=== PATIENT | female | born 1970 | race Asian ===

== ENCOUNTER 2021-02-11 16:31 | Emergency (ER) | payer BC, SELFPAY ==
--- NOTE | ~2021-02-11 | US_ITS ---
US pelvic complete w TV DATE: 02/11/2021 20:15 INDICATION: Pelvic pain. Rule out ovarian torsion TECHNIQUE: Real-time imaging via transabdominal and transvaginal approaches COMPARISON: None FINDINGS: The uterus measures 12 cm height, 6.5 cm anteroposterior and 9.3 cm transverse dimension. T here is uterine sonographic heterogeneity with suggestion of fibroid change including one laterally m easuring up to 5 x 6.6 cm dimension. The right left ovary is not visualized. The left ovary measures 4.3 x 3.9 x 5.9 cm and contains a cyst measuring 3 x 4.4 cm, with internal de bris. There is vascular flow to the left ovary on Doppler analysis and color flow imaging and There is mild fluid in the cul-de-sac. IMPRESSION: Enlarged fibroid uterus 3 x 4.4 cm left complicated ovarian cyst No evidence of left ovarian torsion The right ovary is not visualized. Reviewed, dictated and finalized at [facility] Reviewed, dictated and finalized at [facility].
[2021-02-11 16:35] VITALS: BP 117/66; PULSE 67; RESP 18; TEMP 36.6; O2SAT 100
[2021-02-11 16:57] LABS: Basophils Percent Auto 0.3 % (0.2-1.2); Eosinophils Percent Auto 0.5 % (0-4.4); Hematocrit 33.5 % (37.0-47.0); Hemoglobin 10.4 g/dL (12.0-15.0); Immature Granulocyte Absolute 0.02 K/mm3 (0.00-0.031); Immature Granulocyte Percent A 0.3 % (0-0.5); Lymphocytes Absolute Auto 1.13 K/mm3 (0.9-3.2); Lymphocytes Percent Auto 18.6 % (18.3-44.2); Mean Corpuscular Hemoglobin 23.8 pg (26-34); Mean Corpuscular Volume 76.7 fl (80-100); Mean Platelet Volume 9.4 fl (7.4-10.4); Monocytes Absolute Auto 0.2 K/mm3 (0.1-0.6); Monocytes Percent Auto 3.5 % (2.6-8.5); Neutrophils Absolute Auto 4.7 K/mm3 (1.3-6.7); Neutrophils Percent Auto 76.8 % (45.5-73.1); Platelet Count Result 241 k/mm3 (150-375); Red Blood Count 4.37 M/mm3 (4.2-5.4); White Blood Count 6.1 K/mm3 (4.5-10.0)
[2021-02-11 17:08] LABS: Alanine Aminotransferase 13 U/L (4-35); Albumin Level 4.3 g/dL (3.5-5.1); Alkaline Phosphatase 70 U/L (38-126); Anion Gap 11 mmol/L (8-16); Aspartate Amino Transferase 22 U/L (14-36); Bilirubin,Total 0.8 mg/dL (0.2-1.3); Blood Urea Nitrogen 14 mg/dL (7-17); Calcium 8.9 mg/dL (8.4-10.2); Carbon Dioxide 20 mmol/L (22-30); Chloride 103 mmol/L (98-107); Estimated CRCL calculation 90 ml/min; Estimated Glomerular Filt Rate > 60; Glucose 133 mg/dL (65-110); Lipase 66 U/L (23-300); Potassium 2.9 mmol/L (3.4-5.0); Sodium 134 mmol/L (137-145)
[2021-02-11 18:17] LABS: Add Urine Microscopic? YES; Appearance Urine Clear (Clear); Bilirubin Urine Negative (Negative); Blood Urine 3+ (Negative); Color Urine Yellow (Yellow); Glucose Urine UA Negative (Negative); Ketones Urine 2+ mg/dL (Negative); Leukocyte Esterase Ur Negative LEU/UL (Negative); Mucus Urine Heavy /lpf; Nitrate Urine Negative (Negative); Protein Urine 2+ mg/dL (Negative); RBC Urine >75 /hpf (0-2); Specific Grav Ur 1.021 (1.001-1.035); Squamous Epithelial Cell Urine Rare /hpf (Few); Urobilinogen Urine Negative mg/dL (<2.0); WBC Urine 0-3 /hpf
[2021-02-11 18:37] VITALS: BP 109/44; PULSE 70
[2021-02-11 18:39] VITALS: BP 128/68; PULSE 80
[2021-02-11 18:40] VITALS: BP 99/72; PULSE 81
--- NOTE | 2021-02-11 18:56 | ED.ABDPAIN ---
HPI - Abdominal Pain General Chief Complaint: Abdominal Pain Stated Complaint: vaginal bleeding, abd pain Time Seen by Provider: 02/11/21 18:12 Source: patient Mode of arrival: ambulatory Limitations: language barrier (patient's relative is interpreting) History of Present Illness HPI narrative: This is a 50 year old female that presents to the ER for LLQ pain present over the last couple of days. Reports the pain has now radiated to the RLQ as well. It is sharp in nature and intermittent. Currently is on her menstrual cycle and it is much heavier than normal. Denies fever, nausea, vomiting, dysuria or hematuria. Review of Systems Review of Systems: CONSTITUTIONAL: Denies fever GASTROINTESTINAL: Reports abdominal pain. Denies nausea, vomiting, or diarrhea. GENITOURINARY: Denies dysuria or hematuria. All systems reviewed & are unremarkable except as noted in HPI and below PMFSH Past Medical History Medical History (Updated 02/11/21 @ 21:13 by Marya Guerrero PA-C) No active medical problems Social History Social History (Updated 02/11/21 @ 19:32 by Marya Guerrero PA-C) Smoking status: Never smoker Exam Narrative: GENERAL: Well-appearing, well-nourished, and in no acute distress. HEAD: Normocephalic, atraumatic. EYES: EOMI. CHEST: Clear to auscultation. No respiratory distress. No wheezes rales or rhonchi HEART: Regular rate and rhythm. No murmur heard. Normal peripheral pulses. ABDOMEN: Soft, nondistended, normal active bowel sounds. Tender to palpation in the LLQ, without guarding. No CVA tenderness EXTREMITIES: Normal range of motion. No edema. SKIN: Warm, dry, no rash. NEURO: No focal deficits. Alert and oriented x3. PSYCH: Normal mood and affect Course Consultations Consultation #1: Spoke with Dr. Castaneda about patient and work-up who will follow up in clinic. Date: 02/11/21 Time: 21:00 Vital Signs Vital signs: Vital Signs Temperature 97.8 F 02/11/21 16:35 Pulse Rate 67 02/11/21 16:35 Respiratory Rate 18 02/11/21 16:35 Blood Pressure 117/66 02/11/21 16:35 Pulse Oximetry 100 02/11/21 16:35 Temperature 97.8 F 02/11/21 16:35 Pulse Rate 78 02/11/21 19:47 Respiratory Rate 18 02/11/21 19:47 Blood Pressure 105/65 02/11/21 19:47 Pulse Oximetry 100 02/11/21 19:47 MDM - Abdominal Pain MDM Narrative Medical decision making narrative: Patient presents to the ER for left sided pelvic pain present over the last couple of days. She is afebrile and nontoxic appearing. Mildly orthostatic on arrival. Patient hydrated in the ED with IV fluids improvement. CBC is without leukocytosis. Does show microcytic anemia with hemoglobin of 10.4. Patient does report known history of anemia. Metabolic panel significant for hypokalemia with potassium of 2.9. Patient given dose of potassium in the ED. Lipase is normal. UA without evidence of infection. Does show red blood cells, likely due to patient's current menstrual cycle. Pelvic ultrasound shows an enlarged fibroid uterus. Also shows a 3 x 4.4 cm left complicated ovarian cyst. No evidence of ovarian torsion. The right ovary is not visualized. There is a small amount of fluid in the pelvis. Patient was updated on case findings. She reports relief in pain. Spoke with Dr. Castaneda about patient and work-up who will follow up in clinic. Patient is stable and felt appropriate for further outpatient evaluation. She was given warnings to return the ER Lab Data Attestation: I reviewed the patient's lab results. Result diagrams: 02/11/21 16:43 02/11/21 16:43 Labs: Lab Results 02/11/21 02/11/21 02/11/21 Range/Units 16:43 16:43 17:33 WBC 6.1 (4.5-10.0) K/mm3 RBC 4.37 (4.2-5.4) M/mm3 Hgb 10.4 L (12.0-15.0) g/dL Hct 33.5 L (37.0-47.0) % MCV 76.7 L (80-100) fl MCH 23.8 L (26-34) pg MCHC 31.0 L (32-36) g/dl RDW 18.0 H (11.5-14.5) % Plt Count 241 (150-375) k/mm3 MPV 9.4
[2021-02-11] MEDS: ONDANSETRON INJ 4 MG/2 ML VIAL IV PUSH (19:46)
[2021-02-11] MEDS: SODIUM CHLORIDE 0.9% IV 1,000 ML 999 ML IV CONT (19:46)
[2021-02-11] MEDS: MORPHINE SULFATE (*CRX) 2 MG/ML INJ IV PUSH (19:46)
[2021-02-11 19:47] VITALS: BP 105/65; PULSE 78; RESP 18; O2SAT 100
[2021-02-11] MEDS: POTASSIUM CHLORIDE 20 MEQ TABLET 40 MEQ PO (21:16)
[2021-02-11 21:41] VITALS: BP 107/63; PULSE 71; RESP 18; O2SAT 99
== END 2021-02-11 21:43 | disposition home or self-care (01) ==
PROVIDERS: Emergency Provider Emergency Medicine
DX: N83.202 Unspecified ovarian cyst, left side (principal); D25.9 Leiomyoma of uterus, unspecified; E87.6 Hypokalemia
CPT/HCPCS: 36415; 76830; 76856; 80053; 81001; 81025; 83690; 85025; 96365; 96375; 99284; A9270; J0131; J2270; J2405; J7030

== ENCOUNTER 2022-02-04 15:14 | Emergency (ER) | payer BC, SELFPAY ==
[2022-02-04 15:18] VITALS: BP 135/57; PULSE 67; RESP 16; TEMP 36.6; O2SAT 100
[2022-02-04 15:51] LABS: Basophils Percent Auto 0.4 % (0.2-1.2); Eosinophils Absolute Auto 0.1 K/mm3 (0-0.3); Eosinophils Percent Auto 0.6 % (0-4.4); Hematocrit 34.3 % (37.0-47.0); Hemoglobin 10.9 g/dL (12.0-15.0); Immature Granulocyte Absolute 0.03 K/mm3 (0.00-0.031); Immature Granulocyte Percent A 0.3 % (0-0.5); Lymphocytes Absolute Auto 0.76 K/mm3 (0.9-3.2); Lymphocytes Percent Auto 8.5 % (18.3-44.2); Mean Corpuscular HGB Conc 31.8 g/dl (32-36); Mean Corpuscular Hemoglobin 27.8 pg (26-34); Mean Corpuscular Volume 87.5 fl (80-100); Mean Platelet Volume 9.8 fl (7.4-10.4); Monocytes Absolute Auto 0.3 K/mm3 (0.1-0.6); Monocytes Percent Auto 3.3 % (2.6-8.5); Neutrophils Absolute Auto 7.8 K/mm3 (1.3-6.7); Neutrophils Percent Auto 86.9 % (45.5-73.1); Platelet Count Result 247 k/mm3 (150-375); Red Blood Count 3.92 M/mm3 (4.2-5.4); Red Cell Distribution Width 18.2 % (11.5-14.5)
[2022-02-04 15:52] LABS: Add Urine Microscopic? YES; Appearance Urine Cloudy (Clear); Bilirubin Urine 1+ (Negative); Blood Urine 3+ (Negative); Color Urine Red (Yellow); Glucose Urine UA Negative (Negative); Ketones Urine 2+ mg/dL (Negative); Leukocyte Esterase Ur Negative LEU/UL (Negative); Nitrate Urine Negative (Negative); Protein Urine 2+ mg/dL (Negative); Specific Grav Ur 1.025 (1.001-1.035); pH Urine 6.5 (5.0-9.0)
[2022-02-04 15:55] LABS: Alanine Aminotransferase 10 U/L (6-35); Albumin Level 4.2 g/dL (3.5-5.1); Alkaline Phosphatase 74 U/L (38-126); Anion Gap 6 mmol/L (8-16); Aspartate Amino Transferase 24 U/L (14-36); Bilirubin,Total 0.5 mg/dL (0.2-1.3); Blood Urea Nitrogen 17 mg/dL (7-17); Calcium 8.5 mg/dL (8.4-10.2); Carbon Dioxide 23 mmol/L (22-30); Chloride 108 mmol/L (98-107); Estimated CRCL calculation 66 ml/min; Estimated Glomerular Filt Rate > 60; Glucose 110 mg/dL (65-110); Lipase 79 U/L (23-300); Potassium 3.5 mmol/L (3.4-5.0); Sodium 137 mmol/L (137-145)
[2022-02-04 16:02] LABS: Mucus Urine Heavy /lpf; RBC Urine >75 /hpf (0-2); Squamous Epithelial Cell Urine Rare /hpf (Few)
--- NOTE | 2022-02-04 17:12 | ED.ABDPAIN ---
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 She is on day 3 of her current. And symptoms have slightly improved though still seems unbearable and she has trouble sleeping due to the pain. No heavy bleeding at this time. Related Data Allergies Allergy/AdvReac Type Severity Reaction Status Date / Time Penicillins Allergy Unresponsiv Verified 02/04/22 17:22 e Review of Systems Review of Systems: CONST: No fever. HEENT: No sore throat C/V: No chest pain RESP: No cough GI: Reports abdominal pain : Vaginal bleeding M/S: No joint pain. SKIN: No rash. NEURO: [No headache or focal numbness or weakness] PSYCH: [No depression] [facility] Past Medical History Medical History No active medical problems Social History Social History Smoking status: Never smoker Exam Narrative: EXAMINATION OF ORGAN SYSTEMS/BODY AREAS: Constitutional: Vital signs per nursing GENERAL:[No acute distress, non-toxic appearing, but somewhat uncomfortable holding her left lower side.] HEAD: Normal with no signs of head trauma. EYES: EOMI, conjunctiva normal ENT: Hearing grossly intact LUNGS: Nonlabored breathing. HEART: [Regular rate and rhythm] ABD: [Soft], [tender to palpation left pelvis] EXT: Normal range of motion SKIN: [No rashes or lesions.] NEURO: [Alert and oriented x 3. No gross focal sensory or strength deficits.] Ambulates with steady gait PSYCH: Normal affect Course Vital Signs Vital signs: Vital Signs Temperature 98 F 02/04/22 15:18 Pulse Rate 67 02/04/22 15:18 Respiratory Rate 16 02/04/22 15:18 Blood Pressure 135/57 L 02/04/22 15:18 Pulse Oximetry 100 02/04/22 15:18 Oxygen Delivery Room Air 02/04/22 15:18 Temperature 98.3 F 02/04/22 17:47 Pulse Rate 68 02/04/22 17:47 Respiratory Rate 16 02/04/22 17:47 Blood Pressure 124/80 02/04/22 17:47 Pulse Oximetry 100 02/04/22 17:47 Oxygen Delivery Room Air 02/04/22 15:18 MDM - Abdominal Pain MDM Narrative Medical decision making narrative: Electronic medical record was reviewed. Patient presented to the ED with complaint of severe pelvic pain from her period. Vitals [were within acceptable limits]. Physical exam revealed soft abdomen with some [tenderness to palpation in left lower abdomen]. Based on the patient's history and physical exam, my differential includes but is not limited to period cramps, ruptured cyst, endometriosis. CBC, BMP, lipase, LFTs, bilirubin and alk phos were obtained. Labs were pertinent for negative Hcg, Hgb at baseline. I called her nurse school Dr. Castaneda to discuss this with him, as patient is overall nontoxic-appearing and tolerating p.o., I do not feel she requires admission for pain control at this time, but I do feel she could benefit from earlier follow-up with her doctor, he is agreeable to seeing her in the clinic tomorrow morning, he is advising pain control until then, she is given a Smock here and Toradol, with improvement of her symptoms, she is agreeable to following up in the morning with her doctor instead of staying in the hospital. The patient was given strict return precautions, if they are to develop any worsening abdominal pain they are to return to the emergency department immediately. Patient verbally acknowledges understanding these directions. They will be discharged home [with prescriptions]. The patient feels that this is appropriate medical decision making and verbalizes an understanding o
[2022-02-04] MEDS: KETOROLAC 30 MG/ML VIAL (*BKC) 15 MG IM (17:23)
[2022-02-04] MEDS: HYDROcodone/acetaminophen (*CRX) 5-325 MG TABLET 1 TAB PO (17:23)
[2022-02-04] MEDS: Please add drug allergy info to patient profile. 1 EACH XX (17:23)
[2022-02-04 17:47] VITALS: BP 124/80; PULSE 68; RESP 16; TEMP 36.8; O2SAT 100
== END 2022-02-04 17:48 | disposition home or self-care (01) ==
LOC: ANHED 17:29
PROVIDERS: Emergency Provider Emergency Medicine
DX: R10.2 Pelvic and perineal pain (principal)
CPT/HCPCS: 36415; 80053; 81001; 81025; 83690; 85025; 87086; 96372; 99283; A9270; J1885

== ENCOUNTER 2022-02-10 01:12 | Day surgery (SDC) | payer BC, SELFPAY ==
--- NOTE | 2022-02-08 13:56 | PC.NURSE ---
Report to the Outpatient Waiting Room, entrance under the green pavilion located off [facility], at time _1030_ on date _02/10/22_. OR Time: _1230_. - You and your visitor will be asked to self-screen and do not enter if you have any COVID symptoms. - Only one visitor and NO children visitors are allowed at this time. - The patient visitor is requested to leave or wait in car when not with patient due to restrictions. - A mask is required within the hospital. Patients may have clear liquids (water, carbonated beverages, clear teas, apple juice) until 3 hours prior to surgery (0930 AM) with a maximum of 20 ounces. - No food from midnight until time of surgery Take the following medications with a SIP of water the morning of surgery: _HYDROCODONE PAIN PILL IF NEEDED_ Medications to discontinue IBUPROFEN PER DR. WALDEN ,Date to take last dose Please no make-up, nail palestinian, hairspray, perfume, deodorant, or body powder the day of surgery. No jewelry (including any body piercings) or valuables the day of surgery, leave them at home. Please take a shower or bath the night before, or the morning of, surgery with an antibacterial soap. Wear comfortable, loose fitting clothing. - Jewelry must be removed prior to entering the operating room. Rings and piercings that are not removed may be cut off. - The hospital will not accept responsibility for valuables. - Please leave all valuables, including medications, at home the day of surgery. If you are going home after surgery, a licensed fuel oil truck driver must drive you home. - NO public transportation without another adult. - We recommend that an adult stay with you for 24 hours following discharge. - We also recommend that you do not drive, make important decision, drink alcoholic beverages, or take any drugs that were not prescribed by your health care provider for at least 24 hours after your discharge time. Follow any additional instructions given to you from your surgeon. If you or anyone in your household have experienced Covid symptoms in the past week, please notify your surgeon or the nurse liaison at the phone number below for possible testing. Instructions given to _PT _and asked if any additional questions and then verbalized understanding. Patient advised to call surgeon office or pre surgery nurse liaison [phone] if any additional questions.
[2022-02-08 14:47] VITALS: BP 126/80; PULSE 60; RESP 18; TEMP 36.9; O2SAT 100; BMI 21.2
--- NOTE | 2022-02-09 13:25 | P.PNAN_ITS ---
Anes - Initial Pre Proc Eval Procedure: Operation Date: 02/10/22 12:30 Proposed Procedures p Laparoscopic Bilateral Salpingectomy, Left Ovarian Cystectomy - Enrrique Castaneda MD Date/Time: 02/09/22 13:25 Surgeon: Enrrique Castaneda MD Pre Op Diagnosis: hemorrhagic cyst of ovary Patient Data Age: 51 Gender: F Height: 1.6 m Weight: 54.3 kg Last Vital Signs Temp 36.9 C 02/08/22 14:47 Pulse 60 02/08/22 14:47 Resp 18 02/08/22 14:47 BP 126/80 02/08/22 14:47 Pulse Ox 100 02/08/22 14:47 O2 Del Method Room Air 02/08/22 14:47 Allergies Allergy/AdvReac Type Severity Reaction Status Date / Time Penicillins Allergy Unresponsive- Verified 02/08/22 14:27 A CHILD Home Medications Medication Instructions Recorded Confirmed Type hydrocodone 5 mg-acetaminophen 325 1 tablet PO Q6H PRN pain #10 tabs 02/04/22 02/08/22 Rx mg tablet ibuprofen 1 cap PRN PRN Pain 02/08/22 02/08/22 History Patient hx anesthesia problems: none Family hx anesthesia problems: none Results Review: All pre-operative results and documents have been reviewed as part of the pre- operative evaluation. [facility] Past Medical History Medical History (Updated 02/09/22 @ 13:26 by Homer Hernández MD) Back pain No active medical problems Social History Social History Smoking status: Never smoker Second hand tobacco smoke exposure: No Alcohol intake: never Substance use: never Substance use type: does not use Living arrangements: alone Spiritual care concerns: No Anes - Eval Final PreProcedure Day of Procedure 02/09/22 13:25 Patient weight: overweight Heart: regular rate and rhythm Lungs: clear to auscultation and normal air movement Airway: Mallampati scale class II Neurological: alert and oriented Last oral intake: >/= 8 hours ASA classification: II Emergent: no Anesthetic plan: proceed Anesthesia type and monitoring: general ETT Results Review: All pre-operative results and documents have been reviewed as part of the pre- operative evaluation. Informed Consent: The patient's anesthetic plan and its attendant risks and benefits were discussed with the patient/family/POA. Questions were solicited and answers provided to the satisfaction of the patient/family/POA.
[2022-02-10] VITALS (9 sets, daily range): BP systolic 115–155; BP diastolic 62–84; PULSE 46–70; RESP 12–20; TEMP 36.4–36.6; O2SAT 99–100
[2022-02-10] MEDS: ACETAMINOPHEN 500 MG TABLET 1000 MG PO (10:16)
[2022-02-10] MEDS: KETOROLAC 15 MG/ML VIAL (*BKC) IV PUSH (10:50)
[2022-02-10] MEDS: LACTATED RINGERS 1,000 ML 30 ML IV CONT ×2 (10:50→14:30)
--- NOTE | 2022-02-10 11:38 | SUR.PREOP ---
Warm blanket given to patient. No other needs or complaints.
--- NOTE | 2022-02-10 12:44 | WPDHPUPDATE1 ---
History and Physical Update Update Date/Time: 02/10/22 12:44 History and Physical has been reviewed, including an updated exam of the patient. There are NO changes in the patient's condition. Risks, benefits, and alternatives have been discussed and questions answered. Patient agrees to proceed with procedure.
--- NOTE | 2022-02-10 12:56 | PM.IMHP ---
H&P: HPI History of Present Illness Date/Time: 02/10/22 12:56 Chief Complaint: Pelvic pain Narrative: This patient is a 51-year-old female with severe pelvic pain and a longstanding hemorrhagic left ovarian cyst. We have agreed to perform laparoscopic left ovarian cystectomy bilateral salpingectomy. She understands that injuries may occur during the surgery. She understands that injuries can result in hospitalization, more surgery, and severe illness. She understands there is risk of hemorrhage and infection and laparotomy. Review of Systems Review of Systems: All systems reviewed & are unremarkable except as noted in HPI and below Constitutional: Constitutional: Denies chills, Denies fatigue, Denies fever(s) and Denies weakness Eyes: Eyes: Denies blurry vision, Denies change in vision, Denies loss of peripheral vision, Denies loss of vision, Denies other visual disturbances and Denies eye pain ENT: Denies vertigo, Denies dizziness, Denies hearing loss, Denies mouth pain, Denies nasal obstruction, Denies neck mass and Denies neck pain Cardiovascular: Cardiovascular: Denies chest pain, Denies diaphoresis, Denies syncope, Denies leg edema and Denies dyspnea Respiratory: Respiratory: Denies chest congestion, Denies cough, Denies hemoptysis, Denies dyspnea and Denies wheezing Gastrointestinal: Gastrointestinal: Denies abdominal pain, Denies constipation, Denies diarrhea, Denies nausea and Denies vomiting Genitourinary: Genitourinary: Denies hematuria, Denies change in libido, Denies nocturia, Denies genital lesions, Denies flank pain and Denies urinary urgency Musculoskeletal: Musculoskeletal: Denies abnormal gait, Denies back pain, Denies myalgias, Denies arthralgias, Denies joint swelling, Denies muscle weakness and Denies neck pain Integumentary/Breasts: Skin/Breast: Denies swelling, Denies breast pain, Denies breast mass, Denies dry skin, Denies nipple discharge, Denies unusual bruising and Denies jaundice Neurologic: Denies Neuro-related abnormal movements, Denies Abnormal speech present, Denies abnormal gait, Denies behavioral changes, Denies confusion, Denies vertigo, Denies dizziness, Denies syncope, Denies loss of vision, Denies memory loss, Denies convulsions and Denies weakness Psychiatric: Psychiatric: Denies abnormal sleep pattern, Denies behavioral changes, Denies change in libido, Denies confusion, Denies depression, Denies anhedonia and Denies memory loss Endocrine: Endocrine: Reports no additional endocrine complaints, Denies change in libido and Denies fatigue Hematologic/Lymphatic: Hematologic/Lymphatic: Reports no additional hematologic/lymphatic complaints Allergic/Immunologic: Allergic/Immunologic: Reports no additional allergic/immunologic complaints and Denies wheezing PMFSH Past Medical History Medical History (Updated 02/10/22 @ 12:57 by Enrrique Castaneda MD) Back pain No active medical problems Social History Social History Smoking status: Never smoker Second hand tobacco smoke exposure: No Alcohol intake: never Substance use: never Substance use type: does not use Living arrangements: alone Spiritual care concerns: No Meds Home Medications and Allergies Home Medications Medication Instructions Recorded Confirmed Type hydrocodone 5 mg-acetaminophen 325 1 tablet PO Q6H PRN pain #10 tabs 02/04/22 02/08/22 Rx mg tablet ibuprofen 1 cap PRN PRN Pain 02/08/22 02/08/22 History Allergies Allergy/AdvReac Type Severity Reaction Status Date / Time Penicillins Allergy Unresponsive- Verified 02/08/22 14:27 A CHILD Vital Signs Vital Signs - 24 hr 02/10/22 10:52 Temperature 97.8 F Pulse Rate 59 L Respiratory Rate 16 Blood Pressure 129/73 Pulse Oximetry 100 Oxygen Delivery Room Air Exam Const: General: cooperative, healthy appearing, comfortable and no acute distress; No confusion Orientation/consciousne
--- NOTE | 2022-02-10 14:25 | P.OP_ITS ---
Procedure Note - Detailed Date of Procedure 02/10/22 Pre-op Diagnosis hemorrhagic cyst of ovary Post-op Diagnosis Same (Endometrioma 5 cm, diffuse dense adhesions and scarring throughout the pelvis. Focused on the right side in the ovarian tissue And left pelvic sidewall.) Procedure Performed Laparoscopic left oophorectomy, bilateral salpingectomy. Adhesiolysis-1 hour. Surgeon Enrrique Castaneda MD Anesthesia General Indications Pelvic pain, large hemorrhagic cyst Findings Large endometrioma, 5 cm, endometrioma and ovary were adherent to all the surrounding tissue that included the sigmoid colon and rectum, perirectal and alfredo sigmoid colon fat. Was adherent to left pelvic sidewall densely. The colon was adherent to the fundus of the uterus. There were some extraneous endometrial implants in other parts of the pelvis. Description of Procedure The patient was taken to the operating room. She was prepped and draped in the dorsal lithotomy position after induction general anesthesia. A 5 mm incision w as made with a scalpel on the abdominal skin in the left upper quadrant of the abdomen. A 5 mm trocar was inserted into the intra-abdominal cavity under direct visualization the scope. In the same fashion a 11 mm left lower quadrant trocar was inserted and a 5 mm infraumbilical trocar was inserted. 1 hour of adhesiolysis was performed in the left hemipelvis and at the midline between the rectum and uterus. He was done with sharp and blunt dissection. This was in the periovarian tissue in the left pelvic sidewall primarily. Freeing the ovary from the rectum and sigmoid colon was challenging. It required a great deal of time. Bilateral salpingectomy was performed laparoscopically using LigaSure. Ultimately the entire ovary on the left was removed. Most surfaces were adherent to adjacent tissue. Hematoma was used in a abraded surface on the left pelvic sidewall to make it hemostatic. The pelvis was irrigated. The pneumoperitoneum was reduced. The trocars were removed. Skin was closed with subcuticular 4 micro. The patient's incisions were covered with Dermabond. She was taken recovery room in stable condition. Sponge lap and needle counts were correct x2. Complications No immediate complications Condition Stable Disposition Same day
[2022-02-10] MEDS: fentaNYL CITRATE INJ (*CRX) 100 MCG/2 ML VIAL 25 MCG IV PUSH ×4 (15:20→15:40)
== END 2022-02-10 16:45 | disposition home or self-care (01) ==
PROVIDERS: Visit Provider Obstetrics & Gynecology
PROC: (CPT 49320; principal; 2022-02-10 12:30)
DX: N80.1 Endometriosis of ovary (principal); R10.2 Pelvic and perineal pain; N80.8 Other endometriosis; N73.6 Female pelvic peritoneal adhesions (postinfective)
CPT/HCPCS: 58661; 88305; A9270; J1100; J1885; J2250; J2405; J2704; J2710; J3010; J7030; J7120